=== PATIENT | male | born 1935 | race Caucasian/White ===

== ENCOUNTER 2016-07-02 11:10 | Inpatient (IN) | payer MEDICARE, BC ==
[2016-07-02] VITALS (14 sets, daily range): BP systolic 124–162; BP diastolic 58–77
[~2016-07-02] VITALS: Ht 175.3 cm; Wt 75.3 kg
[~2016-07-02 11:10] MED LIST: ALBU18HF IH; ATEN25TA PO; FLUT1DIS3 IH; FURO40TA4 PO; ISOS60TA2 PO; MAXIDE; OMEP40CA2 PO; TAMS0.4C97 PO; TYLENOL PM PO
[2016-07-02] MEDS ORDERED: IPRATRPIUM/ALBUTEROL 0.5/2.5MG 3 ML NEBU. ONE (11:45)
[2016-07-02] MEDS: IPRATRPIUM/ALBUTEROL 0.5/2.5MG 3 ML NEBU. NEB SCH ×3 (11:45→20:32)
[2016-07-02] MEDS ORDERED: ENOXAPARIN ** NOTE DOSE ** SYRINGE SQ SCH (12:00)
[2016-07-02] MEDS ORDERED: FLUT1DIS3 IH (12:01)
[2016-07-02] MEDS ORDERED: FEXO180T81 PO (12:02)
[2016-07-02 12:03] LABS: BASO % 0 % (0-3); EOS # 0.1 x10^3/uL (0.0-0.7); EOS % 1 % (0-3); HEMATOCRIT 40.9 % (39.0-53.0); HEMOGLOBIN 13.6 g/dL (13.0-17.5); LYMPH # 0.9 x10^3/uL (1.0-4.8); LYMPH % 5 % (24-48); MEAN CORPUSCULAR HEMOGLOBIN 30 pg (25-35); MEAN CORPUSCULAR HGB CONC 33 g/dL (31-37); MEAN CORPUSCULAR VOLUME 90 fL (79-100); MONO # 1.3 x10^3/uL (0.0-1.1); MONO % 8 % (0-9); NEUT # 14.8 x10^3uL (1.8-7.7); NEUT % 87 % (31-73); PLATELET COUNT 258 x10^3/uL (140-400); RED BLOOD COUNT 4.53 x10^6/uL (4.30-5.70); RED CELL DISTRIBUTION WIDTH 14.1 % (11.5-14.5); WHITE BLOOD COUNT 17.1 x10^3/uL (4.0-11.0)
[2016-07-02] MEDS ORDERED: ASPI-612 PO (12:05)
[2016-07-02 12:11] LABS: ALBUMIN 3.6 g/dL (3.4-5.0); CALCIUM 9.1 mg/dL (8.5-10.1); GFR 72.1; POTASSIUM 3.7 mmol/L (3.5-5.1); TOTAL BILIRUBIN 0.5 mg/dL (0.2-1.0); TOTAL PROTEIN 7.3 g/dL (6.4-8.2)
[2016-07-02] MEDS ORDERED: CHLO25TA PO (12:17)
[2016-07-02] MEDS ORDERED: ROFL500T7 PO (12:17)
[2016-07-02] MEDS ORDERED: OMEP20CA9 PO (12:17)
[2016-07-02] MEDS ORDERED: RANO500T2 PO (12:22)
[2016-07-02] MEDS ORDERED: ROSU20TA35 PO (12:22)
[2016-07-02] MEDS ORDERED: ROSU5TAB18 PO (12:22)
[2016-07-02] MEDS ORDERED: OMEG1CAP38 PO (12:23)
[2016-07-02] MEDS ORDERED: FLUT16SP21 NS (12:30)
[2016-07-02] MEDS ORDERED: MAGN400C PO (12:30)
[2016-07-02] MEDS ORDERED: MULT1CAP15 PO (12:31)
[2016-07-02] MEDS ORDERED: [UNRECOGNIZED DRUG - CODE] TL (12:32)
[2016-07-02 12:43] LABS: BGAS PH 7.39 (7.35-7.46)
[2016-07-02] MEDS ORDERED: methylPREDNISolone SOD SUCC PF 125 MG/2 ML VIAL. IV ONE (12:45)
[2016-07-02] MEDS ORDERED: NON FORMULARY ITEM (Fexofenadine Hcl (Allegra Allergy) 1 TAB) PO PRN (12:45)
[2016-07-02] MEDS ORDERED: ALBUTEROL SULFATE 8GM INHALER. IH SCH (13:00)
--- NOTE | 2016-07-02 13:06 | HP ---
ADMIT DATE: 07/02/2016 HISTORY OF PRESENT ILLNESS: The patient is a 80-year-old male patient, who was admitted directly from his Cardiology office as he presented there complaining of increasing shortness of breath. He woke up this morning, right side chest pain and chilling the whole night and early this morning. Denied any fever. He does have cough with scanty white sputum. He also complained of swelling of his right lower extremity, but denied any hemoptysis. PAST MEDICAL HISTORY: Significant for chronic obstructive pulmonary disease, hypertension, coronary artery disease, status post PTCA and stent deployment, hyperlipidemia, abdominal aortic aneurysm, renal artery stenosis, gout, and hiatal hernia. PAST SURGICAL HISTORY: Significant for PTCA and stent deployment, abdominal aortic aneurysm repair, renal artery angioplasty, bilateral cataract extraction, appendectomy, cholecystectomy, chronic back pain for which he has had steroid epidural injection. ALLERGIES: He is allergic to THEOPHYLLINE. MEDICATIONS: He is currently on the following medications: He is on albuterol sulfate 2 puffs 4 times a day, aspirin 81 mg once a day, atenolol 25 mg daily, fexofenadine 180 mg once a day, Advair Diskus 250/50 one puff twice a day, furosemide 40 mg once a day, isosorbide mononitrate 60 mg daily, omeprazole 40 mg once a day, tamsulosin 0.4 mg at bedtime and Maxzide 1 tablet once a day, Tylenol PM one tablet at bedtime. FAMILY HISTORY: He has 8 brothers and 3 sisters and only 4 brothers and 1 sister are alive. One brother of cancer. Two brothers of accident. One brother of complication of diabetes. One brother of cirrhosis. One sister of pulmonary fibrosis and other of diabetic complication. SOCIAL HISTORY: He is , has 2 sons and one of them has non-Hodgkin lymphoma. The other has hypertension. Three daughters seem to be reasonably healthy. He smokes for almost years, quit about 6 years ago. He smoked a pack a day. 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 REVIEW OF SYSTEMS: The patient denied any blurring of vision. He had bilateral cataract extractions, but denied any glaucoma or macular degeneration. Denied any earache, tinnitus or sensorineural deafness. Denied any nosebleeds, stuffy nose or postnasal drip. Denied any sore throat, sore tongue, toothache, hoarseness of voice or difficulty swallowing. Denied any nausea, vomiting, diarrhea or constipation. Denied any hematemesis, melena or hematochezia. Denied any dysuria, frequency, hematuria. Did complain of chest pain and shortness of breath. He has cough with scanty whitish sputum. Did complain of chills, but no rigors or fever. PHYSICAL EXAMINATION: GENERAL: When I examined him, he was resting, slightly propped up in bed, clearly tachypneic, pale, but no jaundice, cyanosis or thyromegaly. No jugular venous distention. His right lower extremity is more swollen than the left lower extremity. VITAL SIGNS: His heart rate was 99, blood pressure 147/80, temperature was 98.4, respiratory rate was 24 and oxygen saturation was 93% on 2 liters of oxygen by nasal cannula. HEAD, EYES, EARS, NOSE AND THROAT: Showed normocephalic, atraumatic. NECK: Supple. HEART: Showed normal first and second heart sounds with no gallop, rub or murmur. CHEST: Showed central trachea, equally reduced expansion, reduced air entry. Dull percussion noted and absent breath sounds in the right side anteriorly. Very few scattered rhonchi, more so on the right than left. I could not appreciate any crepitation. ABDOMEN: Distended, soft, nontender. No guarding or rigidity. No organomegaly. All hernial orifices intact. Bowel sounds normal. NEUROLOGIC: He was awake, alert, responding appropriately. Cranial nerves intact. EXTREMITIES: He moves extremities without difficulty. ASSESSMENT AND PLAN: The patient was admitted with questionable community-acquired pneumonia as well as chronic obstructive pulmonary disease exacerbation and acute hypoxic respiratory failure. He also had right-sided chest pain that seems to be atypical and may be pleuritic in nature; however, we will do 3 sets of cardiac enzyme and EKG. We will start him on Solu-Medrol 125 mg IV and then 60 mg IV q.8 hourly. We will start him on IV antibiotics for community-acquired pneumonia. I will arrange for him also to have check his D-dimer and will do a venous Doppler ultrasound of his right lower extremity to rule out possibility of deep vein thrombosis and PE that might be causing his symptoms. ALFA QUINTERO MD DR: Gianni JOB#: [id number] / [id number]
[2016-07-02 13:16] LABS: % ATYL 1 % (0-0); % BANDS 3 % (0-9); % EOS 1 % (0-5); % LYMPHS 5 % (24-48); % MONOS 6 % (0-10); % SEGS 84 % (35-66); PLT ESTIMATE ADEQUATE (ADEQUATE)
--- NOTE | 2016-07-02 13:20 | RAD ---
Portable chest, 07/02/2016: History: COPD, shortness of breath Comparison is made to a study from 12/18/2014. The heart size is normal. Mild patchy infiltrates are present in the right lower chest. These have worsened slightly in the right middle lobe region since the 12/18/2014 study. No definite left lung infiltrate is seen. There are emphysematous changes in the lungs with scattered parenchymal scars. No pleural fluid is evident. IMPRESSION: Slight interval worsening of the right lower chest infiltrates, again suggesting pneumonia.
[2016-07-02] MEDS: AZITHROMYCIN 250 MG TABLET. PO SCH (13:32)
[2016-07-02] MEDS ORDERED: NITROGLYCERIN SUBLINGUAL 0.4 MG BOTTLE OF 25. SL PRN (13:45)
[2016-07-02] MEDS ORDERED: ALBUTEROL SULFATE 2.5 MG/3 ML NEBU. NEB PRN (13:45)
[2016-07-02] MEDS: methylPREDNISolone SOD SUCC PF 40 MG/ML VIAL. IV SCH ×2 (13:49→21:00)
--- NOTE | 2016-07-02 13:57 | RAD ---
Right lower extremity venous ultrasound, 07/02/2016 : History: Right leg swelling Duplex evaluation including grayscale, color flow and spectral Doppler analysis was performed. The femoral and popliteal veins show no filling defects to suggest DVT. The visualized calf veins are unremarkable. IMPRESSION: There is no sonographic evidence of deep vein thrombosis in the right lower extremity
[2016-07-02] MEDS ORDERED: ACET-422 PO (17:29)
[2016-07-02] MEDS ORDERED: DIPHENHYDRAMINE PO PRN (17:30)
[2016-07-02] MEDS ORDERED: ACETAMINOPHEN PO PRN (17:30)
[2016-07-02] MEDS: BUDESONIDE 0.5 MG/2 ML NEBU NEB SCH (20:32)
[2016-07-02] MEDS: TAMSULOSIN 0.4 MG CAP.ER.24H. PO SCH (20:59)
[2016-07-02] MEDS: ACETAMINOPHEN 500 MG TABLET PO PRN (20:59)
[2016-07-02] MEDS: diphenhydrAMINE HCL 25 MG CAPSULE PO PRN (20:59)
[2016-07-02] MEDS: RANOLAZINE 500 MG TAB.ER.12H PO SCH (20:59)
[2016-07-02] MEDS: ENOXAPARIN ** NOTE DOSE ** SYRINGE SQ SCH (21:00)
[2016-07-02] MEDS ORDERED: NON FORMULARY ITEM (Fluticasone/Salmeterol (Advair 250-50 Diskus) 1 PUFF) IH SCH (21:00)
[2016-07-03] VITALS (21 sets, daily range): BP systolic 124–155; BP diastolic 60–86
[2016-07-03] MEDS: methylPREDNISolone SOD SUCC PF 40 MG/ML VIAL. IV SCH ×3 (05:11→21:18)
[2016-07-03] MEDS: IPRATRPIUM/ALBUTEROL 0.5/2.5MG 3 ML NEBU. NEB SCH ×4 (06:03→20:26)
--- NOTE | 2016-07-03 07:07 | ACF ---
Admission Criteria Forms COPD Clinical Indications for Admission to Inpatient Care (Place 'X' for any and all applicable criteria): Admission is indicated for ANY ONE of the following (1)(2)(3): [X]I. Acute exacerbation by high-risk comorbidity (e.g., pneumonia, dysrhythmia, heart failure, pleural effusion, pneumothorax) or severe underlying COPD (e.g., steroid dependent) [ ]II. Inpatient admission required rather than observation care (see Chronic Obstructive Pulmonary Disease: Observation Care) because of ANY ONE of the following: [ ]a) New or pre-existing signs or symptoms of COPD (eg, dyspnea or Tachypnea at rest or with minimal activity) that persist despite outpatient and observation care treatment [ ]b) New-onset hypoxemia (room air SaO2 less than 90%, PO2 less than 60 mm Hg (8.0 kPa)) that persists despite outpatient and observation care treatment [ ]c) Worsening of pre-existing hypoxemia (eg, new or increased requirement for supplemental oxygen to maintain oxygenation at baseline level) that persists despite outpatient and observation care treatment, with oxygen treatment needs performable only in acute inpatient setting [ ]d) Hypercarbia (PCO2 greater than 40 mm Hg (5.3 kPa))-induced respiratory acidosis (pH less than 7.35) that persists despite outpatient and observation care treatment [ ]e) Supplemental oxygen or respiratory treatments for over 24 hours that are performable only in acute inpatient setting [ ]f) Chest tube placement with active evacuation (e.g., suction, drainage) (5) [ ]g) Other condition, treatment or monitoring requiring inpatient admission [ ]III. Planned invasive surgical or diagnostic procedures requiring acute- care hospitalization [ ]IV. Acute respiratory failure (e.g., uncompensated hypercarbia, severe hypoxemia) [ ]V. Severe comorbid condition (e.g., severe steroid myopathy, acute vertebral fracture) that has acutely worsened pulmonary function [ ]. Confusion state, lethargy, obtundation, stupor or coma Extended stay beyond goal length of stay may be needed for (31)(32): [ ]a ) Respiratory Failure. [ ]b) Severe or persisting hypoxemia or hypercarbia [ ]c) Severe or persistent dyspnea [ ]d) Comorbidities (e.g. chronic heart failure, atrial fibrillation with rapid response, pneumonia) [ ]e) Malnutrition The original [facility] content created by Katharine Manning has been revised. The portions of the content which have been revised are identified through the use of italic text or in bold, and [facility] has neither reviewed nor approved the modified material. All other unmodified content is copyright [facility]. Please see references footnoted in the original [facility] edition 2016 Admission Criteria Met?: Yes PERCY GUTIERREZ July 03, 2016 07:07
[2016-07-03] MEDS: PANTOPRAZOLE 40 MG TABLET. PO SCH (07:10)
[2016-07-03] MEDS: OMEGA-3 FATTY ACIDS/FISH OIL 1,000 MG CAPSULE. PO SCH (08:37)
[2016-07-03] MEDS: MAGNESIUM OXIDE 400 MG TABLET PO SCH (08:37)
[2016-07-03] MEDS: MULTIVITAMIN with MINERAL TABLET. PO SCH (08:37)
[2016-07-03] MEDS: CETIRIZINE HCL 10 MG TABLET PO SCH (08:38)
[2016-07-03] MEDS: RANOLAZINE 500 MG TAB.ER.12H PO SCH ×2 (08:38→21:18)
[2016-07-03] MEDS: AZITHROMYCIN 250 MG TABLET. PO SCH (08:38)
[2016-07-03] MEDS: ASPIRIN ENTERIC COATED 81 MG TABLET.DR. PO SCH (08:38)
[2016-07-03] MEDS: ATORVASTATIN CALCIUM 20 MG TABLET PO SCH (08:38)
[2016-07-03] MEDS: ATENOLOL 25 MG TABLET PO SCH (08:39)
[2016-07-03] MEDS: ISOSORBIDE MONONITRATE ER 60 MG TAB.ER.24H PO SCH (08:39)
[2016-07-03] MEDS: CHLORTHALIDONE 25 MG TABLET PO SCH (08:39)
[2016-07-03] MEDS: FLUTICASONE 50MCG/NASAL SPRAY 16GM BOTTLE. NS SCH (08:39)
[2016-07-03] MEDS: ROFLUMILAST 500 MCG TABLET PO SCH (08:39)
[2016-07-03] MEDS ORDERED: ROSUVASTATIN CALCIUM 5 MG PO SCH (09:00)
[2016-07-03] MEDS ORDERED: NON FORMULARY ITEM (Omeprazole 1 CAP) PO SCH (09:00)
[2016-07-03 09:09] LABS: CALCIUM 8.9 mg/dL (8.5-10.1); CREATININE 1.1 mg/dL (0.7-1.3); GFR 64.6; POTASSIUM 4.1 mmol/L (3.5-5.1)
--- NOTE | 2016-07-03 09:13 | PDOC2 ---
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 07/03/16 0913: CONSULT Date of Admission DATE: 07/03/16 TIME: 09:03 Reason for Consult: Chest pain History of Present Illness This is a pleasant 80-year-old male who presented to clinic yesterday and was found to be hypoxic and feverish.He has a history of coronary artery disease with a bare metal stent in his left anterior descending coronary artery in 2002 and his most recent cardiac catheterization in 2009 did not show any disease requiring intervention, mild pulmonary hypertension, mild thoracic aortic aneurysm, abdominal aortic aneurysm repair, hypertension, hyperlipidemia, mild carotid disease, COPD and obstructive sleep apnea. Last week he had an episode of not feeling well with dry heaves and increased shortness of breath. It lasted about 2 days and then he started to get better. Yesterday he went to [employer] and did very well and walked all over the store. Slept well last night but upon waking felt like he was chilled and shaky. He had forgot to take his Advair twice yesterday so he took 2 breathing treatments and he continued to feel very short of breath. Upon walking into the office yesterday his oxygen saturation is 80 percent on 2 liters he is shaky and diaphoretic. He has a cough that he is having a hard time getting sputum up. He denied any PND, orthopnea or increase in lower extremity edema (chronic left greater than right) . He has been having some chest pain but felt like it was related to the coughing and vomiting that he had done last week. It is not related to activity and does not cause him to have shortness of breath, nausea, vomiting or diaphoresis. It is more of a sore sensation that is tender to the touch. Initial chest x-ray showed pneumonia and he has been treated with antibiotics, IV steroids and breathing treatments. This morning he is feeling much better and his oxygen saturation is 97 percent on 2 liters. Family History Father - Heart disease ( age: 84) Mother - Cerebrovascular accident ( age: 74) Sister - Fibrosis of lung - Heart disease Brother - Diabetes mellitus - Cirrhosis of liver Social History Occupation: Retired Marital status: Live alone or with others?: with others Diet: Regular Exercise level: None Smoking Status: Former smoker (Notes: Quit 14 years ago) Smoker (1 PPD) Tobacco-years of use: 44 Alcohol intake: None Caffeine intake: Moderate (Notes: 3 cups daily) Past Medical History Carotid Disease: Y Coronary Artery Disease: Y High Cholesterol: Y Hypertension: Y Acid Reflux (GERD): Y COPD: Y Sleep Apnea: Y Allergies - THEOPHYLLINE Medications Advair Diskus 250 mcg-50 mcg/dose powder for inhalation twice daily albuterol sulfate 0.63 mg/3 mL solution for nebulization 4 times daily Zehra Allergy 180 mg tablet Take 1 tablet(s) every day by oral route as needed. aspirin 81 mg tablet,delayed releaseTake 1 tablet(s) every day by oral route. atenolol 25 mg tabletTake 1 tablet(s) every day by oral route. chlorthalidone 25 mg tabletTake 1 tablet(s) every day by oral route. cyclobenzaprine 5 mg tablet Daliresp 500 mcg tabletTake 1 tablet(s) every day by oral route for 90 days. fluticasone 50 mcg/actuation nasal spray,suspension gabapentin 300 mg capsule HYDROcodone 5 mg-acetaminophen 325 mg tablet HYDROcodone 7.5 mg-acetaminophen 325 mg tablet isosorbide mononitrate ER 60 mg tablet,extended release 24 hr1 tab daily nitroglycerin 400 mcg/spray translingual omeprazole 20 mg capsule,delayed releaseTake 1 capsule(s) every day by oral route for 90 days. predniSONE 10 mg tablet Ranexa 500 mg tablet,extended releaseTake 1 tablet(s) twice a day by oral route. rosuvastatin 5 mg tablet1 tab daily tamsulosin 0.4 mg capsuleTake 1 capsule(s) every day by oral route for 30 days. Review of systems-review of 10 organ systems is negative except for as above Physical Exam Patient is a 80-year-old male. GENERAL: This is a well developed, well nourished male. No apparent distress. SKIN: Warm and dry with normal skin turgor. Negative for pallor. No lesions or rashes noted. EYES: Conjunctiva are clear. Extraocular movements are intact. No xanthelasma. HEAD AND NECK: Oral mucosa is moist. There is no cyanosis. Neck is supple. Jugular venous pressure is flat. Carotid pulses are 2/2 bilaterally. No carotid bruits. There is no obvious thyromegaly. HEART: Regular rate and rhythm. Normal S1 and S2. No S3. No S4. No significant murmur. No rub. PMI is not displaced. LUNGS: Effort is labored and diminished bilaterally ABDOMEN: Normal active bowel sounds. Soft. Nontender. EXTREMITIES: No clubbing. No cyanosis. Trace edema of lower extremities. Palpable pedal pulses. MUSCULOSKELETAL: No kyphosis. No scoliosis. No localized tenderness or stiffness. Gait appears normal. NEUROLOGIC: Alert and oriented times three. Cranial nerves III-XII are grossly intact. Good motor tone and strength in the upper and lower extremities bilaterally. PSYCHOLOGIC: This is a pleasant patient with a normal affect. Procedure Documentation Procedure: CAROTID ARTERY DUPLEX STUDY IMPRESSION (01/17/16): MILD intimal disease in carotid bulb, ICA, ECA and CCA bilaterally. Doppler analysis revealed < 50% stenosis in carotid arteries bilaterally. Normal antegrade flow was noted in both vertebral arteries LEXISCAN NUCLEAR STRESS TEST IMPRESSION (11/25/2015): Hemodynamic response: There was a normal heart rate and a normal blood pressure response to stress. Clinical response: There was no chest pain during stress. Arrhythmias: None. Stress ECG: There were no significant stress induced ECG changes. Myocardial perfusion: Normal perfusion without evidence of infarction or ischemia. Wall motion: Normal. Ejection fraction: 58%. Compared to previous study on 02/21/2014, there was no significant change. ECHOCARDIOGRAM IMPRESSION (11/25/2015): There is mild concentric left ventricular hypertrophy. No significant regional wall motion abnormalities are identified. The left ventricular systolic function is normal with an estimated ejection fraction of 60-65%. There is evidence of impaired left ventricular relaxation suggestive of stage I diastolic dysfunction. The proximal ascending aorta appears mildly dilated at 3.6 cm. There is mild aortic valve sclerosis. There is trace aortic valve regurgitation. There is mild mitral annular calcification. There is trace mitral valve regurgitation. There is trace tricuspid valve regurgitation. The estimated pulmonary artery systolic pressure is normal at 26 mmHg. Compared to the report (images were not available for review) of the study dated 11/19/2014, the pulmonary hypertension was not seen. ELECTROCARDIOGRAM (11/25/2015): Sinus rhythm with probable old anterior wall infarct, age undetermined. CAROTID ARTERY DUPLEX STUDY IMPRESSION (01/11/2015): <50% intimal disease in RT ICA. 50-79% intimal disease in LT ICA. Normal antegrade flow was noted in both vertebral arteries. CT OF CHEST WITHOUT CONTRAST (12/21/2014): 1. Moderate emphysema with pleural/parenchymal scarring. 2. Partial clearing of the bilateral lower lobe pneumonitis since 10/18/2014. 3. Streaky parenchymal opacities have developed in the right middle lobe and posterior aspect of the right upper lobe suggesting pneumonia. VENOUS LOWER EXTREMITY BILATERAL (10/19/2014): 1. No thrombus identified in deep venous system of bilateral lower extremities. CT CHEST WITH CONTRAST (10/18/2014): 1. Negative exam for pulmonary emboli. 2. Emphysema. Bronchopneumonia in both lower lobes. Mild lymphadenopathy likely reactive. 3. 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 ECHOCARDIOGRAM IMPRESSION (11/19/2014): The left ventricle is normal in size. There is mild concentric left ventricular hypertrophy. No significant regional wall motion abnormalities are identified. The left ventricular systolic function is normal with an estimated ejection fraction of 72%. There is evidence of impaired left ventricular relaxation suggestive of stage I diastolic dysfunction. The inferior vena cava is dilated but does respond normally to respiration, which is consistent with mildly elevated right atrial pressure. There is mild aortic valve sclerosis. There is mild mitral annular calcification. There is mild tricuspid regurgitation. The estimated pulmonary artery systolic pressure is 39 mmHg, consistent with mild pulmonary hypertension. Compared to the report (images were not available for review) of the study dated 11/15/2013, mild left ventricular hypertrophy and mild pulmonary hypertension are new findings. LEXISCAN NUCLEAR STRESS TEST IMPRESSION (02/21/2014): Hemodynamic response: There was a normal heart rate and a normal blood pressure response to stress. Clinical response: There was chest pressure during stress, which resolved during recovery. This is considered a nonspecific finding with Lexiscan infusion. Arrhythmias: None. Stress ECG: There were no significant stress induced ECG changes. Myocardial perfusion: There was a small, moderately intense, partly reversible inferoapical defect with minimal ischemia. Wall motion: Normal. Ejection fraction: 69%. Compared to the report (images were not available for review) from the previous study performed on 03/15/2012, the inferoapical defect is new. HOLTER MONITOR IMPRESSION (08/28/2014): 1. Increased supraventricular ectopic activity totaling 3325 with a large number of short, slow atrial tachycardia, the maximum lasting for 4 beats. 2. Occasional ventricular ectopics. 3. The patient's symptoms are as above. CAROTID ARTERY DUPLEX STUDY IMPRESSION (12/08/2013): Right ICA has less than 50% stenosis. Left ICA 50 to 69% stenosis. Normal antegrade flow was noted in both vertebral arteries. ECHOCARDIOGRAM IMPRESSION (11/15/2013): Normal EF of 60 to 65%. Mild diastolic dysfunction with impaired relaxation. Valves are functionally normal. Compared to the previous ECHO in 03/23 the diastolic dysfuncion is new and the RV is now normal. Assessment / Plan Acute on chronic respiratory failure-underlying pneumonia. Continue antibiotics, steroids and nebs per primary. Chest pain -TX has been ruled out and his last stress test in November 2015 showed normal perfusion. I believe that this is muscular related to his ongoing coughing secondary to pneumonia. Coronary artery disease, status post revascularization. The patient is doing well without any angina. We will continue optimal medical therapy. Hypertension, controlled. Continue present anti-hypertensive medication. Hyperlipidemia. His goal LDL is < 100 mg/dL. Continue Crestor Pulmonary hypertension, Mild - likely from COPD Severe COPD with continuous oxygen supplement Moderate Left Carotid disease - Improved to mild bilateral . Current Medications Current Medications Albuterol/ Ipratropium (Duoneb) 3 ml STK-MED ONCE .ROUTE ; Start 07/02/16 at 11: 45; Stop 07/02/16 at 11:46; Status DC Albuterol/ Ipratropium (Duoneb) 3 ml RTQID NEB Last administered on 07/03/16 06:03; Start 07/02/16 at 12:00 Methylprednisolone Sodium Succinate (SOLU-Medrol 125MG VIAL) 125 mg 1X ONCE IV Last administered on 07/02/16 13:32; Start 07/02/16 at 12:45; Stop 07/02/16 at 12:46; Status DC Methylprednisolone Sodium Succinate (SOLU-Medrol 40MG VIAL) 40 mg Q8HRS IV Last administered on 07/03/16 05:11; Start 07/02/16 at 14:00 Ceftriaxone Sodium 1 gm/ Sodium Chloride 50 ml @ 100 mls/hr Q24H IV Last administered on 07/02/16 13:32; Start 07/02/16 at 13:00 Azithromycin (Zithromax) 500 mg DAILY PO Last administered on 07/03/16 08:38; Start 07/02/16 at 13:00 Enoxaparin Sodium (Lovenox 80mg Syringe) 70 mg Q12H SQ Last administered on 13:36; Start 07/02/16 at 12:00; Stop 07/02/16 at 20:09; Status DC Albuterol Sulfate (Ventolin Hfa) 2 puff QID IH ; Start 07/02/16 at 13:00; Stop 07/02/16 at 13:34; Status DC Aspirin (Aspirin Enteric Coated) 81 mg DAILY PO Last administered on 07/03/16 08:38; Start 07/03/16 at 09:00 Atenolol (Tenormin) 25 mg DAILY PO Last administered on 07/03/16 08:39; Start 07/03/16 at 09:00 Chlorthalidone (Thalitone) 25 mg DAILY PO Last administered on 07/03/16 08:39 ; Start 07/03/16 at 09:00 Fluticasone Propionate (Flonase) 1 spray DAILY NS Last administered on 08:39; Start 07/03/16 at 09:00 Isosorbide Mononitrate (Imdur) 60 mg DAILY PO Last administered on 07/03/16 08 :39; Start 07/03/16 at 09:00 Ranolazine (Ranexa) 500 mg BID PO Last administered on 07/03/16 08:38; Start 07/02/16 at 21:00 Tamsulosin HCl (Flomax) 0.4 mg HS PO Last administered on 07/02/16 20:59; Start 07/02/16 at 21:00 Non-Formulary Medication 1 tab DAILY PRN PO ALLERGIES; Start 07/02/16 at 12:45 ; Stop 07/02/16 at 13:15; Status DC Non-Formulary Medication 1 puff BID IH ; Start 07/02/16 at 21:00; Stop 07/02/16 at 21:00; Status DC Magnesium Oxide (Magnesium Oxide) 400 mg QODAY PO Last administered on 08:37; Start 07/03/16 at 09:00 Multivitamins/ Calcium (Thera-M Plus) 1 tab DAILY PO Last administered on 08:37; Start 07/03/16 at 09:00 Nitroglycerin (Nitrostat) 0.4 mg PRN Q5MIN PRN SL CHEST PAIN; Start 07/02/16 at 13:45 Fish Oil (Fish Oil) 1,000 mg DAILY PO Last administered on 07/03/16 08:37; Start 07/03/16 at 09:00 Non-Formulary Medication 1 cap DAILY PO ; Start 07/03/16 at 09:00; Stop at 09:00; Status DC Non-Formulary Medication 5 mg DAILY PO ; Start 07/03/16 at 09:00; Stop 07/03/16 at 09:00; Status DC Atorvastatin Calcium (Lipitor) 20 mg DAILY PO Last administered on 07/03/16 08 :38; Start 07/03/16 at 09:00 Cetirizine HCl (ZyrTEC) 10 mg DAILY PO Last administered on 07/03/16 08:38; Start 07/03/16 at 09:00 Pantoprazole Sodium (Protonix) 40 mg DAILYAC PO Last administered on 07/03/16 07:10; Start 07/03/16 at 07:30 Budesonide (Pulmicort) 0.5 mg RTBID NEB Last administered on 07/02/16 20:32; Start 07/02/16 at 20:00 Albuterol Sulfate (Ventolin) 2.5 mg PRN Q6HRS PRN NEB SHORTNESS OF BREATH; Start 07/02/16 at 13:45 Non-Formulary Medication 1 each PRN QHS PRN PO INSOMNIA; Start 07/02/16 at 17: 30; Stop 07/02/16 at 17:35; Status DC Acetaminophen (Tylenol) 500 mg PRN QHS PRN PO INSOMNIA Last administered on 20:59; Start 07/02/16 at 17:45 Diphenhydramine HCl (Benadryl) 25 mg PRN QHS PRN PO INSOMNIA Last administered on 07/02/16 20:59; Start 07/02/16 at 17:45 Enoxaparin Sodium (Lovenox 80mg Syringe) 70 mg Q12H SQ Last administered on 21:00; Start 07/02/16 at 22:00 Active Scripts Active Reported Acetaminophen Pm Caplet (Acetaminophen/Diphenhydramine) 1 Each Tablet 1 Each PO PRN QHS PRN Nitroglycerin 4.1 Gm [place] 4.1 Gm TL PRN PRN Multivitamins (Multivitamin) 1 Each Capsule 1 Each PO DAILY Magnesium (Magnesium Oxide) 400 Mg Capsule 1 Cap PO QODAY Fluticasone Propionate Nasal [place] (Fluticasone Propionate) 16 Gm [place].susp 1 Spr NS DAILY LAST DOSE GIVEN: DATE: TIME: NEXT DOSE DUE: DATE: TIME: [place] 3 Fish Oil Softgel ([place]-3 Fatty Acids/Fish Oil) 1 Each Capsule.dr 1 Each PO DAILY Rosuvastatin Calcium 5 Mg Tablet 5 Mg PO DAILY LAST DOSE GIVEN: DATE: TIME: NEXT DOSE DUE: DATE: TIME: Ranexa (Ranolazine) 500 Mg Tab.er.12h 500 Mg PO BID Rosuvastatin Calcium 20 Mg Tablet 20 Mg PO DAILY LAST DOSE GIVEN: DATE: TIME: NEXT DOSE DUE: DATE: TIME: Daliresp (Roflumilast) 500 Mcg Tablet 1 Tab PO DAILY Chlorthalidone 25 Mg Tablet 1 Tab PO DAILY Omeprazole 20 Mg Capsule.dr 1 Cap PO DAILY Aspirin Ec (Aspirin) 81 Mg Tablet.dr 1 Tab PO DAILY Zehra Allergy (Fexofenadine Hcl) 180 Mg Tablet 1 Tab PO DAILY PRN Ventolin Hfa Inhaler (Albuterol Sulfate) 18 Gm Hfa.aer.ad 2 Puff IH QID LAST DOSE GIVEN: DATE: TIME: NEXT DOSE DUE: DATE: TODAY TIME: WHEN NEEDED Advair 250-50 Diskus (Fluticasone/Salmeterol) 1 Each Disk.w.dev 1 Puff IH BID LAST DOSE GIVEN: DATE: TODAY TIME: AM NEXT DOSE DUE: DATE: TODAY TIME: PM Flomax (Tamsulosin Hcl) 0.4 Mg Cap.er.24h 0.4 Mg PO HS LAST DOSE GIVEN: DATE: YESTERDAY TIME: AT BEDTIME NEXT DOSE DUE: DATE: TODAY TIME: AT BEDTIME Atenolol 25 Mg Tablet 25 Mg PO DAILY for high blood pressure LAST DOSE GIVEN: DATE: TODAY TIME: AM NEXT DOSE DUE: DATE: TOMORROW TIME: AM Isosorbide Mononitrate Er (Isosorbide Mononitrate) 60 Mg Tab.er.24h 60 Mg PO DAILY LAST DOSE GIVEN: DATE: TODAY TIME: AM NEXT DOSE DUE: DATE: TOMORROW TIME: AM Allergies: Coded Allergies: theophylline (Verified Allergy, Intermediate, 10/19/14) Patients states pill form VITALS Vital Signs Date Time Temp Pulse Resp B/P (MAP) Pulse Ox O2 Delivery O2 Flow Rate FiO2 07/03/16 08:39 75 124/72 07/03/16 08:00 22 96 Nasal Cannula 3.0 07/03/16 03:01 98.6 Labs Laboratory Tests Test 07/02/16 11:41 07/02/16 11:45 07/02/16 12:30 07/03/16 05:46 Nasal Screen MRSA (PCR) Negative (Negative) White Blood Count 17.1 x10^3/uL (4.0-11.0) Red Blood Count 4.53 x10^6/uL (4.30-5.70) Hemoglobin 13.6 g/dL (13.0-17.5) Hematocrit 40.9 % (39.0-53.0) Mean Corpuscular Volume 90 fL (79-100) Mean Corpuscular Hemoglobin 30 pg (25-35) Mean Corpuscular Hemoglobin Concent 33 g/dL (31-37) Red Cell Distribution Width 14.1 % (11.5-14.5) Platelet Count 258 x10^3/uL (140-400) Neutrophils (%) (Auto) 87 % (31-73) Lymphocytes (%) (Auto) 5 % (24-48) Monocytes (%) (Auto) 8 % (0-9) Eosinophils (%) (Auto) 1 % (0-3) Basophils (%) (Auto) 0 % (0-3) Neutrophils # (Auto) 14.8 x10^3uL (1.8-7.7) Lymphocytes # (Auto) 0.9 x10^3/uL (1.0-4.8) Monocytes # (Auto) 1.3 x10^3/uL (0.0-1.1) Eosinophils # (Auto) 0.1 x10^3/uL (0.0-0.7) Basophils # (Auto) 0.0 x10^3/uL (0.0-0.2) Segmented Neutrophils % 84 % (35-66) Band Neutrophils % 3 % (0-9) Lymphocytes % 5 % (24-48) Atypical Lymphocytes % (Manual) 1 % (0-0) Monocytes % 6 % (0-10) Eosinophils % 1 % (0-5) Platelet Estimate Adequate (ADEQUATE) Large Platelets Occ D-Dimer (Destinee) 0.72 mg/L (0.00-0.50) Sodium Level 134 mmol/L (136-145) Potassium Level 3.7 mmol/L (3.5-5.1) Chloride Level 96 mmol/L (98-107) Carbon Dioxide Level 30 mmol/L (21-32) Anion Gap 8 (6-14) Blood Urea Nitrogen 14 mg/dL (8-26) Creatinine 1.0 mg/dL (0.7-1.3) Estimated GFR (Cockcroft-Gault) 72.1 BUN/Creatinine Ratio 14 (6-20) Glucose Level 114 mg/dL (70-99) Calcium Level 9.1 mg/dL (8.5-10.1) Total Bilirubin 0.5 mg/dL (0.2-1.0) Aspartate Amino Transf (AST/SGOT) 28 U/L (15-37) Alanine Aminotransferase (ALT/SGPT) 26 U/L (16-63) Alkaline Phosphatase 62 U/L (46-116) Troponin I Quantitative < 0.017 ng/mL (0-0.055) < 0.017 ng/mL (0-0.055) JK-Hgk-F-Type Natriuretic Peptide 132 pg/mL (0-449) Total Protein 7.3 g/dL (6.4-8.2) Albumin 3.6 g/dL (3.4-5.0) Albumin/Globulin Ratio 1.0 (1.0-1.7) Blood Gas pH 7.39 (7.35-7.46) Blood Gas PCO2 40 mmHg (35-46) Blood Gas PO2 67 mmHg (71-100) Blood Gas HCO3 24 mmol/L (21-28) Arterial Bld O2 Saturation (Calc) 93 % (92-99) FiO2 32 % DENTON HODGE MD 07/03/16 0932: CONSULT Allergies: Coded Allergies: theophylline (Verified Allergy, Intermediate, 10/19/14) Patients states pill form Assessment/Plan I have participated in the care of this patient and I have reviewed and agree with all pertinent clinical information above including history, exam, and recommendations. Briefly this is a 80-year-old with a history of COPD and cardiac disease was admitted with increasing shortness of breath for the last week or so. He was found to be hypoxic. He denied any fevers but did admit to sweats. He is feeling much better now Constitutional: Well developed, well nourished, no acute distress, non-toxic appearance. HENT: Normocephalic, atraumatic, bilateral external ears normal, oropharynx moist, no oral exudates, nose normal. Eyes: KEISHA, EOMI, conjunctiva normal, no discharge. Neck: Normal range of motion, no tenderness, supple, no stridor. Jugular venous pressure is not elevated. There are bilateral carotid bruits Cardiovascular: Normal first and second heart sounds. There are no murmurs rubs or gallops. Heart sounds are somewhat muffled Thorax and Lungs: Breath sounds are severely diminished bilaterally. There are bilateral crackles. There are no wheezes Abdomen: Bowel sounds normal, soft, no tenderness, no masses, no pulsatile masses. Skin: Warm, dry, no erythema, no rash. Back: No tenderness, no CVA tenderness. Extremities: Intact distal pulses, no tenderness, no cyanosis, no clubbing, ROM intact, no edema. Neurologic: Alert and oriented X 3, normal motor function, normal sensory function, no focal deficits noted. Psychologic: Affect normal, judgement normal, mood normal. Impression Shortness of breath/hypoxia: This appears to be secondary to a pneumonia. His chest x-ray confirms this. His white count is 17,000 with 82% neutrophils. He is on antibiotics and is feeling better. Chest pain: He has a long history of chest pain, which occurs predominantly in the resting position, frequently in supine position. This is transient, and is relieved by nitroglycerin. There has been no change in the frequency or severity. He had a negative stress Mackle perfusion scan in November 2015. The pain is relieved by nitroglycerin and can likely reflect reflux disease. Coronary artery disease: He had a prior stent to his LAD in 2002, and had a nonobstructive catheter in 2009, and a negative stress Mackle perfusion scan in November 2015. Carotid disease: Moderate COPD: Chronic. He is on oxygen. Obstructive sleep apnea: He is on CPAP for the last 6-7 years. Pulmonary hypertension: Has improved with oxygen and CPAP. Hypercholesterinemia: He is on a statin. Hypertension: His blood pressure is under good control He has improved and is stable from a cardiovascular perspective. I will sign off Problems: KASYS BERUMEN APRN July 03, 2016 09:13 DENTON HODGE MD July 03, 2016 09:32
[2016-07-03 09:18] LABS: BASO # 0.1 x10^3/uL (0.0-0.2); BASO % 0 % (0-3); EOS % 0 % (0-3); HEMATOCRIT 36.8 % (39.0-53.0); HEMOGLOBIN 12.7 g/dL (13.0-17.5); LYMPH # 0.7 x10^3/uL (1.0-4.8); LYMPH % 4 % (24-48); MEAN CORPUSCULAR HEMOGLOBIN 31 pg (25-35); MEAN CORPUSCULAR HGB CONC 35 g/dL (31-37); MEAN CORPUSCULAR VOLUME 89 fL (79-100); MONO # 0.4 x10^3/uL (0.0-1.1); MONO % 2 % (0-9); NEUT # 17.3 x10^3uL (1.8-7.7); NEUT % 94 % (31-73); PLATELET COUNT 242 x10^3/uL (140-400); RED BLOOD COUNT 4.15 x10^6/uL (4.30-5.70); RED CELL DISTRIBUTION WIDTH 14.2 % (11.5-14.5); WHITE BLOOD COUNT 18.5 x10^3/uL (4.0-11.0)
[2016-07-03] MEDS: ENOXAPARIN ** NOTE DOSE ** SYRINGE SQ SCH (09:51)
[2016-07-03] MEDS: BUDESONIDE 0.5 MG/2 ML NEBU NEB SCH ×2 (11:23→20:26)
[2016-07-03] MEDS ORDERED: IV NORMAL SALINE 250ML 250 ML ONE (12:34)
[2016-07-03] MEDS: TAMSULOSIN 0.4 MG CAP.ER.24H. PO SCH (21:18)
[2016-07-03] MEDS: diphenhydrAMINE HCL 25 MG CAPSULE PO PRN (21:20)
[2016-07-03] MEDS: ACETAMINOPHEN 500 MG TABLET PO PRN (21:20)
[2016-07-04] VITALS (9 sets, daily range): BP systolic 120–151; BP diastolic 63–75
[2016-07-04] MEDS: IPRATRPIUM/ALBUTEROL 0.5/2.5MG 3 ML NEBU. NEB SCH ×4 (05:14→20:52)
[2016-07-04] MEDS: methylPREDNISolone SOD SUCC PF 40 MG/ML VIAL. IV SCH ×2 (05:19→17:40)
[2016-07-04 06:06] LABS: CALCIUM 8.7 mg/dL (8.5-10.1); CREATININE 1.1 mg/dL (0.7-1.3); GFR 64.6
[2016-07-04 06:11] LABS: HEMATOCRIT 37.1 % (39.0-53.0); HEMOGLOBIN 12.5 g/dL (13.0-17.5); RED BLOOD COUNT 4.16 x10^6/uL (4.30-5.70); RED CELL DISTRIBUTION WIDTH 14.2 % (11.5-14.5); WHITE BLOOD COUNT 16.8 x10^3/uL (4.0-11.0)
[2016-07-04] MEDS: ATORVASTATIN CALCIUM 20 MG TABLET PO SCH (08:45)
[2016-07-04] MEDS: CHLORTHALIDONE 25 MG TABLET PO SCH (08:45)
[2016-07-04] MEDS: ROFLUMILAST 500 MCG TABLET PO SCH (08:45)
[2016-07-04] MEDS: AZITHROMYCIN 250 MG TABLET. PO SCH (08:46)
[2016-07-04] MEDS: MULTIVITAMIN with MINERAL TABLET. PO SCH (08:46)
[2016-07-04] MEDS: OMEGA-3 FATTY ACIDS/FISH OIL 1,000 MG CAPSULE. PO SCH (08:46)
[2016-07-04] MEDS: ATENOLOL 25 MG TABLET PO SCH (08:46)
[2016-07-04] MEDS: PANTOPRAZOLE 40 MG TABLET. PO SCH (08:46)
[2016-07-04] MEDS: ISOSORBIDE MONONITRATE ER 60 MG TAB.ER.24H PO SCH (08:46)
[2016-07-04] MEDS: CETIRIZINE HCL 10 MG TABLET PO SCH (08:46)
[2016-07-04] MEDS: ASPIRIN ENTERIC COATED 81 MG TABLET.DR. PO SCH (08:46)
[2016-07-04] MEDS: RANOLAZINE 500 MG TAB.ER.12H PO SCH ×2 (08:47→21:22)
[2016-07-04] MEDS: FLUTICASONE 50MCG/NASAL SPRAY 16GM BOTTLE. NS SCH (08:47)
[2016-07-04] MEDS: ENOXAPARIN 40 MG/0.4 ML DISP.SYRIN. SQ SCH (08:47)
--- NOTE | 2016-07-04 10:04 | PN ---
DATE: 07/03/2016 SUBJECTIVE: The patient is resting slightly propped up, feeling much, much better than yesterday. His cough is much less. He continued to be slightly tachypneic, but afebrile. His chest x-ray showed that he has right lower lobe infiltrate. PHYSICAL EXAMINATION: GENERAL: When I examined him this afternoon, he looked well and was clearly in no apparent respiratory distress, slightly pale, but no jaundice, cyanosis, lymphadenopathy, or thyromegaly. No jugular venous distention. No limb edema. VITAL SIGNS: Her heart rate was 80, blood pressure was 135/86, temperature was 97.2, respiratory rate was 29. His oxygen saturation was 94% on 3 liters of oxygen. HEENT: Showed normocephalic, atraumatic. NECK: Supple. HEART: Showed normal first and second heart sounds with no gallop, rub or murmur. CHEST: Clear to auscultation. No crepitation or rhonchi. ABDOMEN: Distended, soft, nontender. No guarding or rigidity. No organomegaly. Hernial orifices intact. Bowel sounds normal. NEUROLOGIC: He is definitely more awake, alert, responding appropriately. Cranial nerves intact. He moves extremities without difficulty. His intake was 1167, output was 950. He has had his venous Doppler ultrasound of the right lower extremity which showed no sonographic evidence of deep vein thrombosis in the right lower extremity. LABORATORY DATA: Today, showed a white cell count was up to 18,500, hemoglobin 12.7, hematocrit 36.8, MCV 89 and platelet count 242,000. His chemistry showed a serum sodium of 133, potassium 4.1, chloride 96, bicarbonate 29, anion gap of 8, BUN 19, creatinine 1.1, estimated GFR was 64 mL per minute. His glucose was 147. Calcium was 8.9. His total protein was 7.3, albumin 3.6. He has 3 sets of cardiac enzymes that were all negative. His chest x-ray showed that he has slight interval worsening of his right lower lobe infiltrate, suggesting pneumonia. ASSESSMENT: 1. Community-acquired pneumonia. 2. Chronic obstructive pulmonary disease exacerbation. 3. Acute hypoxic respiratory failure. 4. Right-sided chest pain, most likely pleuritic in nature and no evidence of myocardial infarction. He is known to have hyperlipidemia, chronic gout and renal artery stenosis, status post stenting. PLAN: My plan is to continue with IV antibiotic in the form of ceftriaxone and Zithromax. Continue with methyl prednisolone. Continue with all his other medications. I will cut down his Lovenox to only 40 mg subcutaneous once a day for prophylaxis instead of being therapeutic. ALFA QUINTERO MD DR: LUCIA/[email or web address] JOB#: [id number] / [id number]
[2016-07-04] MEDS: BUDESONIDE 0.5 MG/2 ML NEBU NEB SCH ×2 (12:00→20:52)
[2016-07-04] MEDS: TAMSULOSIN 0.4 MG CAP.ER.24H. PO SCH (21:22)
[2016-07-04] MEDS: ACETAMINOPHEN 500 MG TABLET PO PRN (21:23)
[2016-07-04] MEDS: diphenhydrAMINE HCL 25 MG CAPSULE PO PRN (21:23)
--- NOTE | 2016-07-05 03:47 | PN ---
DATE: 07/04/2016 SUBJECTIVE: The patient is sitting comfortably in his chair in no apparent respiratory distress. He is feeling much better. No further chest tightness. Wheezing has been up and about. OBJECTIVE: GENERAL: When I examined him today, he looked well and was clearly in no apparent respiratory distress. He was somewhat pale, but no jaundice, cyanosis, or thyromegaly. No jugular venous distension. No lower limb edema. VITAL SIGNS: His heart rate was 72, blood pressure 142/66, temperature was 98.2, respiratory rate was 22 and oxygen saturation was 97% on 3 liters of oxygen by nasal cannula. HEAD, EYES, EARS, NOSE AND THROAT: Showed normocephalic, atraumatic. NECK: Supple. HEART: Showed normal first and second heart sounds with no gallop, rub or murmur. CHEST: Shows central trachea, equally reduced expansion, reduced air entry and vesiculr sounds with crepitation mostly on the right side posteriorly, very few scattered rhonchi. ABDOMEN: Distended, soft, nontender. NEUROLOGIC: He is awake, alert, responding appropriately. Cranial nerves intact. He moves extremities without difficulty, ambulates with a walker. His intake over the last 24 hours was 2230, output was 1150. LABORATORY DATA: As of this morning showed a white cell count of 16,800, hemoglobin 12.5, hematocrit 37, MCV 89 and platelet count 256,000. His chemistry showed a serum sodium 134, potassium 4, chloride 97, bicarbonate 29, anion gap of 8, BUN 24, creatinine 1.1. Estimated GFR was 64 mL per minute. His glucose was 148. Calcium was 8.7. ASSESSMENT: 1. Community-acquired pneumonia. 2. Chronic obstructive pulmonary disease exacerbation. 3. Acute hypoxic respiratory failure. 4. Right-sided chest pain, most likely pleuritic in nature with no evidence myocardial infarction. 5. He is known to have hyperlipidemia. 6. Chronic gout. 7. Renal artery stenosis status post stenting. PLAN: My plan is to continue with IV antibiotic. I will cut down on his steroids today to twice a day and hopefully discharge him home tomorrow. ALFA QUINTERO MD DR: LUCIA/makayla JOB#: [id number] / [id number]
[2016-07-05] MEDS: IPRATRPIUM/ALBUTEROL 0.5/2.5MG 3 ML NEBU. NEB SCH ×2 (05:21→11:25)
[2016-07-05] MEDS: methylPREDNISolone SOD SUCC PF 40 MG/ML VIAL. IV SCH (06:13)
[2016-07-05 06:29] VITALS: BP 138/68
[2016-07-05] MEDS: PANTOPRAZOLE 40 MG TABLET. PO SCH (08:02)
[2016-07-05] MEDS: ASPIRIN ENTERIC COATED 81 MG TABLET.DR. PO SCH (08:02)
[2016-07-05] MEDS: MULTIVITAMIN with MINERAL TABLET. PO SCH (08:02)
[2016-07-05] MEDS: RANOLAZINE 500 MG TAB.ER.12H PO SCH (08:02)
[2016-07-05] MEDS: ROFLUMILAST 500 MCG TABLET PO SCH (08:02)
[2016-07-05] MEDS: CHLORTHALIDONE 25 MG TABLET PO SCH (08:02)
[2016-07-05] MEDS: ATORVASTATIN CALCIUM 20 MG TABLET PO SCH (08:02)
[2016-07-05] MEDS: AZITHROMYCIN 250 MG TABLET. PO SCH (08:03)
[2016-07-05] MEDS: MAGNESIUM OXIDE 400 MG TABLET PO SCH (08:03)
[2016-07-05] MEDS: OMEGA-3 FATTY ACIDS/FISH OIL 1,000 MG CAPSULE. PO SCH (08:03)
[2016-07-05] MEDS: ATENOLOL 25 MG TABLET PO SCH (08:03)
[2016-07-05] MEDS: ISOSORBIDE MONONITRATE ER 60 MG TAB.ER.24H PO SCH (08:03)
[2016-07-05] MEDS: CETIRIZINE HCL 10 MG TABLET PO SCH (08:03)
[2016-07-05] MEDS: ENOXAPARIN 40 MG/0.4 ML DISP.SYRIN. SQ SCH (08:04)
[2016-07-05] MEDS: FLUTICASONE 50MCG/NASAL SPRAY 16GM BOTTLE. NS SCH (08:05)
[2016-07-05] MEDS: BUDESONIDE 0.5 MG/2 ML NEBU NEB SCH (11:25)
[2016-07-05] MEDS ORDERED: CEFP200T PO (12:12)
[2016-07-05] MEDS ORDERED: AZIT250T PO (12:12)
[2016-07-05 12:26] VITALS: BP 135/73
--- NOTE | 2016-07-05 21:36 | DS ---
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 He woke up with right-sided chest pain and chilling the whole night and early the morning of admission, he denied any fever. He did have cough with scanty whitish sputum. He also complained of swelling of his right lower extremity. Denied any hemoptysis. He was extensively investigated and his lab work showed that his white cell count was elevated at 17,000. His chest x-ray showed that he has right lower lobe infiltrate and the patient was started on IV antibiotic in the form of ceftriaxone as well as Zithromax for community-acquired pneumonia. His blood cultures are so far negative; however, the patient did very well. No more cough or phlegm. No fevers or chills. His shortness of breath has dramatically improved and he stated that he is back to his baseline and that he is ready to go home. PHYSICAL EXAMINATION: GENERAL: When I examined him this afternoon, he was sitting on the edge of the bed eating his lunch comfortably in no apparent respiratory distress. Slightly pale, but no jaundice, cyanosis, or thyromegaly. No jugular venous distension. No limb edema. VITAL SIGNS: His heart rate was 97, his heart rate this morning was actually 66, blood pressure was 138/68, temperature was 98, respiratory rate was 18, and oxygen saturation was 97% on 3 liters oxygen. HEAD, EYES, EARS, NOSE, AND THROAT: Showed normocephalic and atraumatic. NECK: Supple. HEART: Showed normal first and second heart sounds with no gallop, rub, or murmur. CHEST: Shows central trachea, equally reduced expansion, reduced air entry, and vesicular sounds with few crepitation mostly in the right side posteriorly. I could not really appreciate any rhonchi. ABDOMEN: Slightly distended, soft, and nontender. No guarding or rigidity. No organomegaly. Hernial orifices intact. Bowel sounds normal. NEUROLOGIC: He is awake and alert. Responding appropriately. Cranial nerves are intact. He ambulates with a walker without assistance. His intake over the last 24 hours was 1900 and output was 2550. His lab work showed a white cell count of 16,800, hemoglobin 12.5, hematocrit 37, MCV 89, and platelet count 256,000. His chemistry showed a serum sodium 134, potassium 4, chloride 97, bicarbonate 29, anion gap of 8, BUN 24, creatinine 1.1, and estimated GFR was 64 mL per minute. Glucose 148 and calcium was 8.7. His D-dimer was slightly elevated 0.72 mg/dL. We did the Doppler ultrasound of both lower extremities. It showed there is no sonographic evidence of deep vein thrombosis in the right lower extremity. DISCHARGE MEDICATIONS: The patient was discharged home to continue on cefpodoxime proxetil 200 mg twice a day for 7 days, azithromycin 250 mg daily for 7 days, acetaminophen, diphenhydramine for Tylenol PM one tablet at bedtime as needed for insomnia, albuterol sulfate 2 puffs 4 times a day, aspirin enteric coated 81 mg once a day, atenolol 25 mg once a day, chlorthalidone 25 mg once a day, fexofenadine for Zehra 180 mg once a day, Flonase 1 spray to each nostril twice a day, Advair Diskus 250/50 one puff twice a day, he is on isosorbide mononitrate 60 mg once a day, magnesium oxide 400 mg every other day, multivitamin 1 tablet once a day, nitroglycerin topically applied for chest pain as needed, omega 3 fatty acid 1 capsule daily, omeprazole 20 mg once a day, Ranexa 500 mg twice a day, Daliresp 500 mcg tablet once a day, Crestor 25 mg once a day, and Flomax 0.4 mg at bedtime. FINAL DISCHARGE DIAGNOSES: 1. Community-acquired pneumonia. 2. Chronic obstructive pulmonary disease exacerbation. 3. Acute hypoxic respiratory failure. 4. Right chest pain likely pleuritic in nature with no evidence of myocardial infarction as he had 3 sets of cardiac enzymes, which were negative. 5. Hyperlipidemia. 6. Hypertension with renal artery stenosis status post stenting. 7. Chronic gout. ALFA QUINTERO MD DR: LUCIA/makayla JOB#: [id number] / [id number]
== END 2016-07-05 12:48 | disposition home or self-care (01) | DRG 871 ==
LOC: ICU 11:10
PROVIDERS: ADMIT Internal Medicine; ATTEND Internal Medicine
PROC: 5A09357 Assistance with Respiratory Ventilation, Less than 24 Consecutive Hours, Continuous Positive Airway Pressure (ICD-10-PCS; principal; 2016-07-03)
DX: A41.9 Sepsis, unspecified organism (principal); J96.21 Acute and chronic respiratory failure with hypoxia; J18.9 Pneumonia, unspecified organism; J44.0 Chronic obstructive pulmonary disease with (acute) lower respiratory infection; J44.1 Chronic obstructive pulmonary disease with (acute) exacerbation; E78.5 Hyperlipidemia, unspecified; G47.33 Obstructive sleep apnea (adult) (pediatric); I10 Essential (primary) hypertension; I25.10 Atherosclerotic heart disease of native coronary artery without angina pectoris; I27.2 Other secondary pulmonary hypertension; K21.9 Gastro-esophageal reflux disease without esophagitis; E78.00 Pure hypercholesterolemia, unspecified; G89.29 Other chronic pain; M54.9 Dorsalgia, unspecified; M1A.9XX0 Chronic gout, unspecified, without tophus (tophi); Z80.9 Family history of malignant neoplasm, unspecified; Z82.3 Family history of stroke; Z83.3 Family history of diabetes mellitus; Z86.79 Personal history of other diseases of the circulatory system; Z87.891 Personal history of nicotine dependence; Z95.5 Presence of coronary angioplasty implant and graft; Z98.41 Cataract extraction status, right eye; Z98.42 Cataract extraction status, left eye; Z98.890 Other specified postprocedural states; Z90.49 Acquired absence of other specified parts of digestive tract; Z79.82 Long term (current) use of aspirin; Z83.6 Family history of other diseases of the respiratory system; Z84.89 Family history of other specified conditions; Z88.8 Allergy status to other drugs, medicaments and biological substances
CPT/HCPCS: 36415; 36600; 71010; 80048; 80053; 82803; 83880; 84484; 85007; 85027; 85379; 87040; 87641; 93971; 94640; J0456; J0696; J1650; J2920; J2930; J7050; J7620; J7626; Q0163; 97110; 97530

== ENCOUNTER → 2016-12-02 | Outpatient (CLI) | payer MEDICARE, BC ==
[~2016-12-02] MED LIST changes: +ACET-422 PO; +ASPI-612 PO; +AZIT250T PO; +BUPIVACAINE MPF 0.25% 10 ML VIAL. ONE; +CEFP200T PO; +CHLO25TA PO; +FEXO180T81 PO; +FLUT16SP21 NS; +IOHEXOL 300 MG/ML 50 ML VIAL. ONE; +LIDOCAINE 1% PF 30 ML VIAL. ONE; +MAGN400C PO; +MULT1CAP15 PO; +OMEG1CAP38 PO; +OMEP20CA9 PO; +RANO500T2 PO; +ROFL500T7 PO; +ROSU20TA35 PO; +ROSU5TAB18 PO; +[UNRECOGNIZED DRUG - CODE] TL; +methylPREDNISolone ACETATE 40 MG/ML VIAL. ONE
== END | disposition home or self-care (01) ==
LOC: SURG 12:37
PROVIDERS: ATTEND Anesthesiology
DX: M46.1 Sacroiliitis, not elsewhere classified (principal); J44.9 Chronic obstructive pulmonary disease, unspecified; I25.10 Atherosclerotic heart disease of native coronary artery without angina pectoris; M19.91 Primary osteoarthritis, unspecified site; K21.9 Gastro-esophageal reflux disease without esophagitis; Z98.890 Other specified postprocedural states
CPT/HCPCS: G0260; J1030; J2001; J3490; Q9967

== ENCOUNTER → 2017-01-05 | Outpatient (CLI) | payer MEDICARE, BC ==
[~2017-01-05] MED LIST changes: +0.9 % SODIUM CHLORIDE 50 ML VIAL. IJ ONE; +DEXAMETHASONE SOD PHOS 4 MG/ML VIAL ONE
== END ==
LOC: SURG 13:04
PROVIDERS: ATTEND Anesthesiology
DX: M54.16 Radiculopathy, lumbar region (principal); J44.9 Chronic obstructive pulmonary disease, unspecified; I25.10 Atherosclerotic heart disease of native coronary artery without angina pectoris; M19.90 Unspecified osteoarthritis, unspecified site; K21.9 Gastro-esophageal reflux disease without esophagitis; I50.9 Heart failure, unspecified; E78.00 Pure hypercholesterolemia, unspecified; Z87.01 Personal history of pneumonia (recurrent); Z83.3 Family history of diabetes mellitus; Z82.49 Family history of ischemic heart disease and other diseases of the circulatory system; Z88.0 Allergy status to penicillin; Z98.890 Other specified postprocedural states; Z95.5 Presence of coronary angioplasty implant and graft; I25.2 Old myocardial infarction
CPT/HCPCS: 64483; 64484; J2001; J3490; Q9967; J1030; J1100

== ENCOUNTER → 2019-02-03 | Outpatient (CLI) | payer MEDICARE, BC ==
[~2019-02-03] MED LIST changes: -0.9 % SODIUM CHLORIDE 50 ML VIAL. IJ ONE; -ALBU18HF IH; +ALBU2.5V8 IH; -ATEN25TA PO; +ATEN25TA2 PO; +ATEN25TA42 PO; -BUPIVACAINE MPF 0.25% 10 ML VIAL. ONE; -CHLO25TA PO; +CHLO25TA9 PO; +DEXA4TAB PO; -DEXAMETHASONE SOD PHOS 4 MG/ML VIAL ONE; +DOCU100C28 PO; +FOLI0.8C PO; +FURO20TA3 PO; +GUAI600T47 PO; -IOHEXOL 300 MG/ML 50 ML VIAL. ONE; -LIDOCAINE 1% PF 30 ML VIAL. ONE; +LORA10TA55 PO; +OMEP20CA16 PO; -OMEP20CA9 PO; +ONDA-84 PO; +OXYC5TAB2 PO; +ROSU20TA28 PO; -ROSU20TA35 PO; +ROSU5TAB12 PO; -ROSU5TAB18 PO; +SENN8.6T11 PO; -methylPREDNISolone ACETATE 40 MG/ML VIAL. ONE
--- NOTE | 2019-02-03 15:20 | RAD ---
EXAM: Chest, 2 views. HISTORY: Chest pain. COPD. COMPARISON: 07/02/2016 FINDINGS: 2 views of the chest are obtained. There is diffuse left lung interstitial infiltrate with a small likely loculated pleural effusion or pleural thickening. There is a left thoracostomy tube. There is right apical pleural-parenchymal scarring. There is a stable prominent cardiac silhouette. There are surgical anchors within the right humeral head. IMPRESSION: Diffuse left lung interstitial infiltrate with small suspected loculated pleural effusion or pleural thickening. The possibility of an underlying neoplastic etiology is not excluded. Electronically signed by: Beatriz Ortiz MD (02/03/2019 3:18 PM) [place] [id number]
== END | disposition home or self-care (01) ==
LOC: RAD 14:57
PROVIDERS: ATTEND Specialist
DX: R91.8 Other nonspecific abnormal finding of lung field (principal)
CPT/HCPCS: 71046

== ENCOUNTER 2019-02-06 12:46 | Inpatient (IN) | payer MEDICARE, BC ==
[~2019-02-06] VITALS: Ht 172.7 cm; Wt 72.1 kg
[~2019-02-06 12:46] MED LIST changes: -ATEN25TA2 PO; -DEXA4TAB PO; -DOCU100C28 PO; -FOLI0.8C PO; -FURO20TA3 PO; -GUAI600T47 PO; -LORA10TA55 PO; -ONDA-84 PO; -OXYC5TAB2 PO; -SENN8.6T11 PO
--- NOTE | 2019-02-06 13:15 | RAD ---
EXAM: Chest, single view. HISTORY: Shortness of breath. COMPARISON: 02/03/2019 FINDINGS: A frontal view of the chest is obtained. There has been suspected slight interval increase in a small left pleural effusion superimposed on pleural thickening and coarse diffuse increased interstitial opacity within the left lung. The heart is normal in size. There is no pneumothorax. There are incidental surgical anchors within the right humeral head. IMPRESSION: Suspected slight interval increase in a small left pleural effusion superimposed on pleural thickening and interstitial infiltrate. The possibility of underlying neoplasm is not excluded. Electronically signed by: Beatriz Ortiz MD (02/06/2019 1:12 PM) [place] [id number]
[2019-02-06 13:29] LABS: BASO % 1 % (0-3); EOS # 0.1 x10^3/uL (0.0-0.7); EOS % 2 % (0-3); HEMATOCRIT 26.8 % (39.0-53.0); LYMPH # 0.5 x10^3/uL (1.0-4.8); LYMPH % 18 % (24-48); MEAN CORPUSCULAR HEMOGLOBIN 30 pg (25-35); MEAN CORPUSCULAR HGB CONC 33 g/dL (31-37); MEAN CORPUSCULAR VOLUME 89 fL (79-100); MONO # 0.9 x10^3/uL (0.0-1.1); MONO % 32 % (0-9); NEUT # 1.3 x10^3uL (1.8-7.7); NEUT % 47 % (31-73); PLATELET COUNT 336 x10^3/uL (140-400); RED BLOOD COUNT 3.02 x10^6/uL (4.30-5.70); RED CELL DISTRIBUTION WIDTH 13.6 % (11.5-14.5); WHITE BLOOD COUNT 2.8 x10^3/uL (4.0-11.0)
[2019-02-06 13:35] LABS: CALCIUM 8.7 mg/dL (8.5-10.1); CREATININE 0.9 mg/dL (0.7-1.3); GFR 80.8; POTASSIUM 4.4 mmol/L (3.5-5.1)
[2019-02-06 13:47] LABS: ALBUMIN 1.8 g/dL (3.4-5.0); ALBUMIN/GLOBULIN RATIO 0.4 (1.0-1.7); TOTAL BILIRUBIN 0.2 mg/dL (0.2-1.0); TOTAL PROTEIN 6.5 g/dL (6.4-8.2)
--- NOTE | 2019-02-06 14:28 | PHYS DOC ---
Past History Past Medical History: CAD, CHF, COPD, High Cholesterol, Hypertension, [place] Past Surgical History: Appendectomy, Other Additional Past Surgical Histo: ABDOMINAL SURGERY, SHOULDER SURGERY Alcohol Use: None Drug Use: None Adult General Chief Complaint Chief Complaint: SHORTNESS OF BREATH HPI HPI Patient is an 83-year-old male who presents report of generalized weakness and cough. Patient was seen at his oncologist's office on Wednesday and was instructed today to come into the hospital due to abnormal blood work. Patient is not sure what his blood work was abnormal. He does indicate that he has stage IV lung cancer and does indicate that he has had some increase in coughing and shortness of breath. Cough has been productive of yellow-green sputum. He is not aware of any fever. He does indicate that he has some shortness of breath that is worsened with exertion.[] Review of Systems Review of Systems Constitutional: Denies fever or chills [] Respiratory: Positive cough with exertional shortness of breath [] Cardiovascular: No additional information not addressed in HPI [] GI: Denies abdominal pain, nausea, vomiting or diarrhea [] Integument: Denies rash or skin lesions [] Neurologic: Denies headache, focal weakness or sensory changes [] All other systems were reviewed and found to be within normal limits, except as documented in this note. Current Medications Current Medications Current Medications Medications (Trade) Dose Ordered Sig/Chelsy Start Time Stop Time Status Last Admin Dose Admin Albuterol/ Ipratropium (Duoneb) 3 ml 1X ONCE 02/06/19 15:00 02/06/19 15:01 Hydromorphone HCl (Dilaudid) 0.5 mg 1X ONCE 02/06/19 14:30 02/06/19 14:31 02/06/19 14:23 0.5 MG Allergies Allergies Allergies Coded Allergies Type Severity Reaction Last Updated Verified theophylline Allergy Intermediate 02/06/19 Yes Physical Exam Physical Exam Constitutional: Well developed, well nourished, no acute distress, non-toxic appearance. [] HENT: Normocephalic, atraumatic, bilateral external ears normal, oropharynx dry, no oral exudates, nose normal. [] Eyes: PERRLA, EOMI, conjunctiva normal, no discharge. [] Neck: Normal range of motion, no tenderness, supple, no stridor. [] Cardiovascular: Mildly tachycardic rate with regular rhythm[] Lungs & Thorax: There are diminished breath sounds in the left lung base with coarse rhonchi to auscultation [] Abdomen: Bowel sounds normal, soft, no tenderness. [] Skin: Warm, dry, no erythema, no rash. [] Extremities: No tenderness, no cyanosis, no clubbing, ROM intact. [] Neurologic: Alert and oriented X 3, no focal deficits noted. [] Current Patient Data Vital Signs Vital Signs Date Time Temp Pulse Resp B/P (MAP) Pulse Ox O2 Delivery O2 Flow Rate FiO2 02/06/19 14:23 22 Room Air 02/06/19 12:55 98.7 100 93 6.0 Lab Results Laboratory Tests Test 02/06/19 13:10 White Blood Count 2.8 x10^3/uL (4.0-11.0) L Red Blood Count 3.02 x10^6/uL (4.30-5.70) L Hemoglobin 9.0 g/dL (13.0-17.5) L Hematocrit 26.8 % (39.0-53.0) L Mean Corpuscular Volume 89 fL (79-100) Mean Corpuscular Hemoglobin 30 pg (25-35) Mean Corpuscular Hemoglobin Concent 33 g/dL (31-37) Red Cell Distribution Width 13.6 % (11.5-14.5) Platelet Count 336 x10^3/uL (140-400) Neutrophils (%) (Auto) 47 % (31-73) Lymphocytes (%) (Auto) 18 % (24-48) L Monocytes (%) (Auto) 32 % (0-9) H Eosinophils (%) (Auto) 2 % (0-3) Basophils (%) (Auto) 1 % (0-3) Neutrophils # (Auto) 1.3 x10^3uL (1.8-7.7) L Lymphocytes # (Auto) 0.5 x10^3/uL (1.0-4.8) L Monocytes # (Auto) 0.9 x10^3/uL (0.0-1.1) Eosinophils # (Auto) 0.1 x10^3/uL (0.0-0.7) Basophils # (Auto) 0.0 x10^3/uL (0.0-0.2) Sodium Level 136 mmol/L (136-145) Potassium Level 4.4 mmol/L (3.5-5.1) Chloride Level 99 mmol/L (98-107) Carbon Dioxide Level 34 mmol/L (21-32) H Anion Gap 3 (6-14) L Blood Urea Nitrogen 16 mg/dL (8-26) Creatinine 0.9 mg/dL (0.7-1.3) Estimated GFR (Cockcroft-Gault) 80.8 BUN/Creatinine Ratio 18 (6-20) Glucose Level 126 mg/dL (70-99) H Calcium Level 8.7 mg/dL (8.5-10.1) Total Bilirubin 0.2 mg/dL (0.2-1.0) Aspartate Amino Transferase (AST) 52 U/L (15-37) H Alanine Aminotransferase (ALT) 47 U/L (16-63) Alkaline Phosphatase 57 U/L (46-116) ZC-Xvt-W-Type Natriuretic Peptide 591 pg/mL (0-449) H Total Protein 6.5 g/dL (6.4-8.2) Albumin 1.8 g/dL (3.4-5.0) L Albumin/Globulin Ratio 0.4 (1.0-1.7) L EKG EKG [] Radiology/Procedures Radiology/Procedures [] Impressions: PROCEDURE: PORTABLE CHEST 1V EXAM: Chest, single view. HISTORY: Shortness of breath. COMPARISON: 02/03/2019 FINDINGS: A frontal view of the chest is obtained. There has been suspected slight interval increase in a small left pleural effusion superimposed on pleural thickening and coarse diffuse increased interstitial opacity within the left lung. The heart is normal in size. There is no pneumothorax. There are incidental surgical anchors within the right humeral head. IMPRESSION: Suspected slight interval increase in a small left pleural effusion superimposed on pleural thickening and interstitial infiltrate. The possibility of underlying neoplasm is not excluded. Electronically signed by: Baetriz Ortiz MD (02/06/2019 1:12 PM) [facility] Course & Med Decision Making Course & Med Decision Making Pertinent Labs and Imaging studies reviewed. (See chart for details) [] Dragon Disclaimer Dragon Disclaimer This electronic medical record was generated, in whole or in part, using a voice recognition dictation system. Departure Departure: Impression: Primary Impression: Community acquired pneumonia Disposition: 09 ADMITTED INPATIENT Admitting Physician: Justina Ornelas Condition: IMPROVED Referrals: VINICIUS LUNDY MD (PCP) Problem Qualifiers Primary Impression: Community acquired pneumonia Laterality: left Lung location: lower lobe of lung Qualified Codes: J18.9 - Pneumonia, unspecified organism JOVAN HARPER Jr. DO Feb 06, 2019 14:28
[2019-02-06] MEDS ORDERED: HYDROmorphone PF 1 MG/ML DISP.SYRIN IV ONE (14:30)
[2019-02-06 14:47] LABS: INFLUENZA A PATIENT NEGATIVE (NEGATIVE); INFLUENZA B PATIENT NEGATIVE (NEGATIVE)
[2019-02-06] MEDS ORDERED: IPRATRPIUM/ALBUTEROL 0.5/2.5MG 3 ML NEBU. NEB ONE (15:00)
[2019-02-06] MEDS ORDERED: AZITHROMYCIN 250 MG TABLET. PO ONE (15:30)
[2019-02-06 15:40] LABS: BILIRUBIN,URINE NEG (NEG); CLARITY,URINE CLEAR; COLOR,URINE YELLOW; GLUCOSE,URINE NEG (NEG); NITRITE,URINE NEG (NEG)
[2019-02-06 15:41] LABS: BACTERIA,URINE 0 /HPF (0-FEW); SQUAMOUS EPITHELIAL CELL,UR FEW /LPF
[2019-02-06] MEDS ORDERED: IV NORMAL SALINE 50ML 50 ML ONE (15:42)
[2019-02-06] MEDS ORDERED: cefTRIAXone SODIUM 1 GM VIAL ONE (15:42)
[2019-02-06] MEDS ORDERED: ACETAMINOPHEN 325 MG TABLET PO PRN ×2 (16:45→18:45)
[2019-02-06] MEDS ORDERED: ONDANSETRON PF 4 MG/2 ML VIAL. IV PRN (16:45)
[2019-02-06] MEDS ORDERED: MORPHINE SULFATE 2 MG/ML DISP.SYRIN. IV PRN (16:45)
[2019-02-06] MEDS: IPRATRPIUM/ALBUTEROL 0.5/2.5MG 3 ML NEBU. NEB SCH ×2 (17:05→19:49)
[2019-02-06 17:43] VITALS: BP 121/58
[2019-02-06] MEDS ORDERED: ATEN25TA2 PO (17:52)
[2019-02-06] MEDS ORDERED: FURO20TA3 PO (17:52)
--- NOTE | 2019-02-06 18:23 | HP ---
ADMIT DATE: 02/06/2019 HISTORY OF PRESENT ILLNESS: The patient is an 83-year-old male patient who came to the Emergency Room complaining of shortness of breath, cough, chest pain, chills, rigors or fever. This has been going on for a while. He was extensively evaluated in the Emergency Room and was found to have leukopenia and anemia. His chemistry was mostly unremarkable. His chest x-ray showed that there has been suspected slight interval increase in small left side pleural effusion, superimposed pleural thickening coarse diffuse increased interstitial opacity within the left lung. The heart size is normal. There is no pneumothorax. There are incidental surgical anchors within the right humeral head and the patient was ALFA QUINTERO MD DR: LUCIA/makayla JOB#: [id number] / [id number]
--- NOTE | 2019-02-06 18:23 | NUR ---
NURSING NOTE ADMIT PT ADMIT TO ROOM 109 VIA EMS AT 1735 WITH DX OF PNEUMONIA AND SEVER SOA. PT STATES HE HAS WORSENING WEAKNESS, NOT SLEEPING, UP IN CHAIR AT NIGHT. PT HAS RECENT DX OF LUNG CA X6 WEEKS AGO OR SO. GIVEN 1-3 MONTHS WITH NO TREATMENT AND 6MONTHS WITH TREATMENT. PT USES CPAP AT NIGHT. PT CURRENTLY ON 4 LITERS TO KEEP OXYGEN ABOVE 90. PT STATS DROP WHEN SPEAKING. PT ALSO HAS MASS IN HIS LEFT HIP. PT STATES HE WAS RECENTLY TREATED FOR UTI AT . PT LIVES HOME WITH . PT STATES TO CALL HIS FOR MEDICATION LIST. ONIEL GUTIERREZ.
--- NOTE | 2019-02-06 18:35 | NUR ---
NURSING NOTE CODE STATUS PT SPOKE WITH THIS NURSE AND DR QUINTERO AND IS NOW A DNR STATUS. BRENDA ENGLE.
--- NOTE | 2019-02-06 18:37 | HP ---
ADMIT DATE: 02/06/2019 HISTORY OF PRESENT ILLNESS: The patient is an 83-year-old male patient who presented to the Emergency Room with increasing shortness of breath, cough with thick tenacious sputum, has also left-sided chest pain, chills, rigors, and fever, has extreme shortness of breath on minimal exertion and as his symptoms had worsened, a decision was made to come to the Emergency Room where he was evaluated and was found to have community-acquired pneumonia together with leukopenia, was admitted to be treated for community-acquired pneumonia. PAST MEDICAL HISTORY: Significant for lung cancer with metastases within the lung, chest wall, and also to the left femur. He has recurrent left-sided malignant pleural effusion for which he underwent pleurodesis. Other medical problems include chronic obstructive pulmonary disease, lung cancer, hypertension, coronary artery disease, status post PTCA with stent deployment, hyperlipidemia, abdominal aortic aneurysm, renal artery stenosis, gout, and hiatal hernia. PAST SURGICAL HISTORY: Significant for PTCA and stent deployment, abdominal aortic aneurysm repair, renal artery angioplasty, bilateral cataract extraction, appendectomy, cholecystectomy, chronic back pain for which he has had steroid injection and left-sided pleurodesis. ALLERGIES: He is allergic to THEOPHYLLINE. FAMILY HISTORY: He has 8 brothers and 3 sisters and only brothers and 1 sister alive. One brother of cancer. Two brothers of accidents. One brother of complication of diabetes. One brother of cirrhosis. One sister of pulmonary fibrosis and the other of diabetic complication. SOCIAL HISTORY: He is , has 2 sons and one of them has non-Hodgkin lymphoma, the other has hypertension. Three daughters seemed to be reasonably healthy. He smoked almost 40 years, quit about 8 years ago. He smoked a pack a day. 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 MEDICATIONS: He is currently on following medications: He is on fexofenadine 180 mg once a day, albuterol sulfate 2 puffs 4 times a day, tamsulosin 0.4 mg at bedtime. He is on Ranexa 500 mg twice a day, Crestor 20 mg once a day and Crestor 5 mg at bedtime, omega-3 fatty acids 1000 mg once a day, isosorbide mononitrate 60 mg daily, nitroglycerin 4.1 gram spray for chest pain, atenolol 25 mg once a day. He also has aspirin 81 mg once a day, Tylenol PM one tablet at bedtime for insomnia, furosemide 20 mg once a day, chlorthalidone 25 mg once a day, Daliresp 1 tablet daily and Flonase 1 spray to each nostril twice a day, magnesium oxide 400 mg every other day, omeprazole 20 mg once a day, multivitamin 1 tablet once a day. REVIEW OF SYSTEMS: As per history, the patient denied any blurring of vision, has had bilateral cataract extraction, but denied any glaucoma or macular degeneration. Denied any earache, tinnitus or sensorineural deafness. Denied any nosebleeds, stuffy nose, or postnasal drip. Denied any sore throat, sore tongue, toothache, hoarseness of voice, or difficulty swallowing. Denied any nausea, vomiting, diarrhea, or constipation. Denied any hematemesis, melena, or hematochezia. He did complain of hesitancy, frequency, and post-void dribbling, has also had nocturia. He did complain of chest pain, shortness of breath on minimal exertion. He has also orthopnea. He sleeps on his recliner and became extremely short of breath with minimal exertion. He has been using his inhalers every 2 hours without much improvement. He had obviously cough with thick tenacious sputum, has also chills, rigors, and fever. PHYSICAL EXAMINATION: GENERAL: On arrival to the Emergency Room, the patient was somewhat tachypneic, cachectic, but no jaundice, cyanosis, or thyromegaly, no jugular venous distention, with bilateral lower extremity edema. VITAL SIGNS: His heart rate was 98, blood pressure was 126/56, temperature was 100.9, respiratory rate was 22, and oxygen saturation was 95% on 4 liters of oxygen. HEAD, EYES, EARS, NOSE, AND THROAT: Normocephalic, atraumatic. NECK: Supple. HEART: Showed normal first and second heart sounds. No gallop or murmur. CHEST: Shows central trachea, equally reduced chest expansion, reduced air entry, vesicular sounds with crepitation mostly in the left side, very few scattered rhonchi. ABDOMEN: Distended, soft, nontender. NEUROLOGIC: He is awake, alert, responding appropriately. All cranial nerves intact. EXTREMITIES: He moves extremities without difficulty. Examination of the extremities showed no clubbing, cyanosis, but bilateral lower limb edema. LABORATORY DATA: His lab work on admission showed a white cell count 2800, hemoglobin 9, hematocrit 27, MCV 89, and platelet count of 336,000. His chemistry showed a serum sodium 136, potassium 4.4, chloride 99, bicarbonate 34, anion gap of 3, BUN 16, creatinine 0.9, estimated GFR was 80 mL per minute, his glucose 126, calcium was 8.7. Total bilirubin, AST, ALT, alkaline phosphatase were normal. B-natriuretic peptide was 591. Total protein was 6.5, albumin was 1.8. His chest x-ray showed that the patient has been suspected slight interval increase in small left side pleural effusion, superimposed on pleural thickening and coarse diffuse increased interstitial opacity within the left lung. The heart is normal in size. There is no pneumothorax. There are incidental surgical anchors within the right humeral head. ASSESSMENT AND PLAN: So, in summary, this is an 83-year-old male patient who was admitted with community-acquired pneumonia, chronic obstructive pulmonary disease exacerbation, [id number] hypoxic respiratory failure, and lung cancer metastasis with recurrent left-sided malignant pleural effusion requiring pleurodesis. His last chemotherapy was about 4 weeks ago and has now a leukopenia. We will continue with IV antibiotic in the form of ceftriaxone piggyback. We will continue with bronchodilators, steroids, pain management, and continue with all his other medications and follow him closely. ALFA QUINTERO MD DR: LUCIA/makayla JOB#: [id number] / [id number]
[2019-02-06] MEDS: methylPREDNISolone SOD SUCC PF 40 MG/ML VIAL. IV SCH (20:55)
[2019-02-06 23:00] VITALS: BP 111/68
[2019-02-07] MEDS: IPRATRPIUM/ALBUTEROL 0.5/2.5MG 3 ML NEBU. NEB SCH ×3 (04:51→13:34)
[2019-02-07] MEDS: methylPREDNISolone SOD SUCC PF 40 MG/ML VIAL. IV SCH ×2 (05:56→14:17)
[2019-02-07 06:09] VITALS: BP 122/72
[2019-02-07 06:40] LABS: HEMATOCRIT 25.7 % (39.0-53.0); HEMOGLOBIN 8.6 g/dL (13.0-17.5); RED BLOOD COUNT 2.9 x10^6/uL (4.30-5.70); RED CELL DISTRIBUTION WIDTH 13.7 % (11.5-14.5)
[2019-02-07 06:45] LABS: WHITE BLOOD COUNT 1.7 x10^3/uL (4.0-11.0)
[2019-02-07 06:55] LABS: ALBUMIN 1.7 g/dL (3.4-5.0); ALBUMIN/GLOBULIN RATIO 0.3 (1.0-1.7); CALCIUM 8.9 mg/dL (8.5-10.1); CREATININE 0.9 mg/dL (0.7-1.3); GFR 80.8; POTASSIUM 4.5 mmol/L (3.5-5.1); TOTAL BILIRUBIN 0.2 mg/dL (0.2-1.0); TOTAL PROTEIN 6.6 g/dL (6.4-8.2)
[2019-02-07] MEDS ORDERED: FOLI0.8C PO (09:49)
[2019-02-07] MEDS ORDERED: DEXA4TAB PO (09:49)
[2019-02-07] MEDS ORDERED: OXYC5TAB2 PO (09:49)
[2019-02-07] MEDS ORDERED: DOCU100C28 PO (09:49)
[2019-02-07] MEDS ORDERED: ONDA-84 PO (09:49)
[2019-02-07] MEDS ORDERED: SENN8.6T11 PO (09:49)
[2019-02-07] MEDS ORDERED: LORA10TA55 PO (09:49)
[2019-02-07] MEDS ORDERED: GUAI600T47 PO (09:49)
[2019-02-07] MEDS ORDERED: IV NORMAL SALINE 1,000ML 1,000 ML IV SCH (10:15)
--- NOTE | 2019-02-07 10:15 | NUR ---
NURSING NOTE PT URINE WAS ONIEL COLORED THIS AM AND APPROX 75ML/HR, PT HAS BEEN DRINKING SIPS OF WATER, ORDER OBTAINED FROM DR QUINTERO FOR NS AT 75ML/HR. BRENDA ENGLE.
[2019-02-07 10:31] VITALS: BP 131/75
--- NOTE | 2019-02-07 10:41 | NUR ---
NURSING NOTE PT CALLED AND STATED THAT PT WAS ON THE PHONE WITH HIM AND IS "OVERSEDATED". STATES THAT HE IS TO BE A FULL CODE AND IS NOT A DNR. THIS NURSE SPOKE WITH PT , STATED THAT ACCORDING TO THE NIGHT NURSE, THE PT WAS RESTLESS AND WAS NOT ABLE TO RELAX AND REST, DR QUINTERO ORDERED A DOSE OF ATIVAN SO THE PATIENT COULD RELAX AND REST. ALSO, THIS NURSE WAS IN THE ROOM YESTERDAY WHEN DR QUINTERO WAS SPEAKING WITH THE PATIENT ABOUT HIS CODE STATUS, PT REQUEST TO BE A DNR YESTURDAY WHEN ASKED. PT STATES HE IS A FULL CODE AND IF SOMETHING HAPPENED, THERE WILL BE A LAWSUIT. PT STATES SHE IS ON HER WAY UP HERE TO SEE HIM AND INFORMED PT THAT WHEN SHE ARRIVES, DISCUSSION ABOUT SITUATION CAN BE HAD WITH THIS NURSE, NURSING DIRECTOR OF COMMUNITY CENTER AND/OR CASE MANAGEMENT FOR CLARIFICATION. WILL CONTINUE TO MONITOR. BRENDA ENGLE.
--- NOTE | 2019-02-07 11:34 | NUR ---
NURSING NOTE SPOKE WITH PT , PT STATES THAT HER AND HER HAVE TALKED IN THE PAST AND THAT HE IS TO BE A FULL CODE. INFORMED PT THAT UPON ASSESSMENT WITH DR QUINTERO ON 02/06/19, PT WAS A&O AND HIS OWN PERSON AND STATED THAT HE DID NOT WANT TO BE A FULL CODE AND WANTED TO BE COMFORTABLE WHEN THE TIME COMES. PT STATES THATS NOT WHAT THEY HAVE TALKED ABOUT IN THE PAST. THIS NURSE WILL TALK TO DR QUINTERO. BRENDA ENGLE.
--- NOTE | 2019-02-07 13:36 | NUR ---
NURSING NOTE PT DAUGHTER IS HERE AND STATES SHE DOES NOT WANT PT TO HAVE THE ATIVAN MEDICATION ANYMORE AND TO TAKE IT OFF HIS MEDICATION LIST. PT DAUGHTER STATES THAT HE IS NOT THINKING CLEARLY WHEN SHE WAS HERE. WILL INFORM DR QUINTERO. BRENDA ENGLE.
--- NOTE | 2019-02-07 13:58 | NUR ---
NURSING NOTE CODE STATUS UPDATE SPOKE WITH ANGEL, NURSING SAXOPHONE PLAYER, WHO STATES PUT PT FULL CODE PER FAMILY REQUEST AT THIS TIME. BRENDA ENGLE.
[2019-02-07 15:44] VITALS: BP 134/64
[2019-02-07] MEDS ORDERED: AZITHROMYCIN 250 MG TABLET. PO SCH (17:00)
--- NOTE | 2019-02-07 19:25 | NUR ---
Discharge Note: [facility] Discharge instructions and discharge home medications reviewed with Other facility and a copy given. All questions have been answered and understanding verbalized. PT TRANSFERRING TO [facility] ROOM 550 FOR HIGHER LEVEL OF CARE. REPORT CALLED TO BRENDA SERRANO BY PREVIOUS SHIFT. FAMILY AWARE OF TRANSFER. The following instructions and handouts were given: MED REC, DC PACKET. Discontinued lines and drains: Peripheral IV remains in place. Patient discharged to [facility] with Ambulance Personnel via Stretcher.
--- NOTE | 2019-02-07 21:08 | DS ---
DATE OF DISCHARGE: 02/07/2019 HOSPITAL COURSE: The patient is an 83-year-old male patient presents to Emergency Room with increasing shortness of breath, cough with thick tenacious sputum, left-sided chest pain, chills, rigors, fever and increasing shortness of breath with minimal exertion. As his symptoms has worsened, the decision was made to come to the Emergency Room where he was evaluated and found to have community-acquired pneumonia together with leukopenia and was admitted to be treated for community-acquired pneumonia. We did start him on Rocephin and Zithromax and he did actually well; however, his wanted him to be transferred to [facility] to be seen by his oncologist as he is due for chemotherapy. Unfortunately, his white cell count dropped down further to 1700, although he is afebrile and feeling generally much improved. PHYSICAL EXAMINATION: GENERAL: When I examined him this afternoon, he was resting slightly propped up in bed, in no apparent respiratory distress, pale. No jaundice, cyanosis or thyromegaly. No jugular venous distention. No limb edema. VITAL SIGNS: Her heart rate was 106, blood pressure was 134/64, temperature 97.4, respiratory rate 20 and oxygen saturation was 93%. HEAD, EYES, EARS, NOSE AND THROAT: Showed normocephalic, atraumatic. NECK: Supple. CARDIAC: Normal first and second heart sounds. No gallop or murmur. CHEST: Shows central trachea, reduced chest expansion, air entry with crepitation mostly in the left side. ABDOMEN: Distended, soft, nontender. NEUROLOGIC: He is awake, alert, responding appropriately. All cranial nerves intact. EXTREMITIES: She moves extremities without difficulty. LABORATORY DATA: His lab work this morning showed a white cell count dropped down further to 1700, hemoglobin 8.6, hematocrit 25.7, MCV 88 and platelet count of 400,000. His chemistry showed a serum sodium 137, potassium 4.5, chloride 99, bicarbonate 35, anion gap of 3, BUN 19, creatinine 0.9, estimated GFR was 80 mL per minute. His glucose 179, calcium was 8.9. Total bilirubin, AST, ALT, alkaline phosphatase were normal. Total protein was 6.6, albumin was 1.7. DISCHARGE MEDICATIONS: The patient was transferred to continue with IV Rocephin, Zithromax and all other medication. FINAL DISCHARGE DIAGNOSES: 1. Left lower lobe pneumonia. 2. Acute on chronic hypoxic respiratory failure, chronic obstructive pulmonary disease, metastatic lung cancer, recurrent malignant pleural effusion status post pleurodesis, hypertension. ALFA QUINTERO MD DR: [email or web address] JOB#: [id number] / [id number]
== END 2019-02-07 19:30 | disposition short-term general hospital (02) | DRG 193 ==
LOC: ER 12:46 → 1 SOUTH 17:31
PROVIDERS: ADMIT Internal Medicine; ATTEND Internal Medicine
DX: J18.9 Pneumonia, unspecified organism (principal); J96.21 Acute and chronic respiratory failure with hypoxia; R65.11 Systemic inflammatory response syndrome (SIRS) of non-infectious origin with acute organ dysfunction; J44.0 Chronic obstructive pulmonary disease with (acute) lower respiratory infection; J44.1 Chronic obstructive pulmonary disease with (acute) exacerbation; J91.0 Malignant pleural effusion; C34.90 Malignant neoplasm of unspecified part of unspecified bronchus or lung; I25.10 Atherosclerotic heart disease of native coronary artery without angina pectoris; I11.0 Hypertensive heart disease with heart failure; I50.9 Heart failure, unspecified; E78.00 Pure hypercholesterolemia, unspecified; Z90.49 Acquired absence of other specified parts of digestive tract; D64.9 Anemia, unspecified; D72.819 Decreased white blood cell count, unspecified; Z98.42 Cataract extraction status, left eye; Z98.41 Cataract extraction status, right eye; Z95.5 Presence of coronary angioplasty implant and graft; Z87.891 Personal history of nicotine dependence; Z86.79 Personal history of other diseases of the circulatory system; Z83.3 Family history of diabetes mellitus; Z80.9 Family history of malignant neoplasm, unspecified; Z88.8 Allergy status to other drugs, medicaments and biological substances; E78.5 Hyperlipidemia, unspecified
CPT/HCPCS: 36415; 71045; 80053; 81001; 83880; 85025; 85027; 87040; 87804; 94640; 96365; 96375; J0456; J0696; J1170; J2060; J2270; J2920; J7620; 99285-25; J7030